=== PATIENT | female | born 1955 | race Caucasian/White ===

== ENCOUNTER 2016-08-26 15:35 | Emergency (ER) | payer MEDICARE, MEDICAID ==
[~2016-08-26 15:35] MED LIST: ABILIFY20 M1; AMITRIPTYLINE H25 M1; NORCO 5-325 TA1 EACH PO; ULTRAM50 M1; XANAX0.5 M1; [UNRECOGNIZED DRUG - REMARK]
[2016-08-26] MEDS ORDERED: BELSOMRA20 MG PO (16:13)
[2016-08-26] MEDS ORDERED: SUMATRIPTAN SU100 M1 PO (16:13)
[2016-08-26] MEDS ORDERED: AMBIEN10 M1 PO (16:13)
[2016-08-26] MEDS ORDERED: XANAX1 M1 PO (16:14)
[2016-08-26] MEDS ORDERED: IBUPROFEN800 M1 PO (16:14)
[2016-08-26] MEDS ORDERED: REMERON15 M1 PO (16:14)
[2016-08-26] MEDS ORDERED: ULTRAM50 M1 PO (16:14)
[2016-08-26] MEDS ORDERED: ANORO ELLIPTA1 EAC1 INH (16:15)
[2016-08-26] MEDS ORDERED: TRAZODONE HCL100 M1 PO (16:15)
[2016-08-26] MEDS ORDERED: BISCOLAX10 MG PR (16:15)
[2016-08-26] MEDS ORDERED: QUETIAPINE FUMA50 M1 PO (16:16)
[2016-08-26] MEDS ORDERED: CITALOPRAM HBR40 M1 PO (16:17)
[2016-08-26] MEDS ORDERED: CYCLOBENZAPRINE10 M1 PO (16:17)
[2016-08-26] MEDS ORDERED: OMEPRAZOLE20 M3 PO (16:18)
[2016-08-26] MEDS ORDERED: PERCOCET 5-3251 EACH PO (16:19)
[2016-08-26] MEDS ORDERED: CO Q-1030 M1 PO (17:05)
[2016-08-26] MEDS ORDERED: DECONGEST PO (17:05)
[2016-08-26] MEDS ORDERED: VITAMIN E400 UNI4 PO (17:05)
[2016-08-26] MEDS ORDERED: VITAMIN D31000 UNI3 PO (17:06)
[2016-08-26] MEDS ORDERED: VITAMIN B-12250 MC2 PO (17:06)
[2016-08-26 17:07] LABS: BASO % 0.4 % (0-2); EOS % 2.1 % (0-7); EOSINOPHIL ABSOLUTE COUNT 0.2 tho/cmm (0.0-0.7); HCT-HEMATOCRIT 40.4 % (34.0-49.0); HGB-HEMOGLOBIN 14.1 gm/dl (12.0-15.5); IMMATURE GRANULOCYTES ABSOLUTE 0.01 tho/cmm (0-0.03); IMMATURE GRANULOCYTES PERCENT 0.1 % (0-0.3); LYMPH % 44.7 % (20-45); LYMPH ABSOLUTE COUNT 3.2 tho/cmm (0.8-4.5); MCH (MEAN CORPUSCULAR HGB) 30.3 pg (28.0-32.0); MCHC MEAN CORPUSCULAR HGB CONC 34.9 % (32.0-36.0); MCV (MEAN CELL VOLUME) 86.9 fl (82.0-96.0); MEAN PLATELET VOLUME 9.7 cmc (9.4-12.4); MONO % 7.9 % (0-12); MONOCYTE ABSOLUTE COUNT 0.6 tho/cmm (0.0-1.2); NEUTROPHIL ABSOLUTE COUNT 3.2 tho/cmm (1.6-8.0); NEUTROPHIL-AUTOMATED 3.2 tho/cmm (1.6-8.0); NEUTROPHILS % 44.8 % (40-80); PLATELET COUNT 265 tho/cmm (150-450); RED BLOOD COUNT 4.65 mil/cmm (4.00-5.20); RED CELL DISTRIBUTION WIDTH 12.8 % (12.4-16.4); WHITE BLOOD COUNT 7.1 tho/cmm (4.0-10.0)
[2016-08-26 17:25] LABS: ALB/GLOB RATIO 0.9 (0.8-2.0); ALBUMIN 3.7 g/dl (3.5-5.0); ALKALINE PHOSPHATASE 91 U/L (33-138); ALT/SGPT 29 U/L (12-78); ANION GAP 10 mmol/L (0-20); AST/SGOT 21 U/L (10-40); BILIRUBIN,TOTAL 0.3 mg/dl (0-1.5); BLOOD UREA NITROGEN 11 mg/dl (6-24); CALCIUM 9.6 mg/dl (8.5-10.5); CARBON DIOXIDE-VENOUS 27 mmol/L (22-32); CHLORIDE 109 mmol/l (96-110); CREATININE 0.59 mg/dl (0.50-1.10); GLUCOSE 84 mg/dL (70-110); LIPASE 106 U/L (73-393); POTASSIUM 4.2 mmol/L (3.7-5.1); SODIUM 142 mmol/L (135-145); eGFR VALUE FOR BLACK >90 mL/Min
[2016-08-26 18:08] LABS: URINE BILIRUBIN NEGATIVE (NEG); URINE BLOOD MODERATE (NEG); URINE GLUCOSE (UA) NEGATIVE (NEG); URINE KETONE NEGATIVE (NEG); URINE LEUKOCYTE ESTERASE NEGATIVE (NEG); URINE NITRITE NEGATIVE (NEG); URINE PROTEIN NEGATIVE (NEG); URINE SPECIFIC GRAVITY 1.005 (1.003-1.030)
[2016-08-26 18:10] LABS: URINE APPEARANCE HAZY; URINE COLOR PALE YELLOW
[2016-08-26 18:21] LABS: URINE AMORPHOUS 1+; URINE EPITHELIAL CELLS 0 /[HPF] (0-10); URINE WBC 0 /[HPF] (0-5)
[2016-08-26] MEDS ORDERED: PRILOSEC OTC20 M1 PO (18:32)
[2016-08-26] MEDS ORDERED: CARAFATE1 G2 PO (18:37)
== END 2016-08-26 18:59 ==
LOC: EDMED 15:35
PROVIDERS: Physician Assistant
DX: R10.13 Epigastric pain (principal); R10.11 Right upper quadrant pain; F32.9 Major depressive disorder, single episode, unspecified; K21.9 Gastro-esophageal reflux disease without esophagitis; M79.7 Fibromyalgia; F17.210 Nicotine dependence, cigarettes, uncomplicated; Z90.710 Acquired absence of both cervix and uterus
CPT/HCPCS: J2405; J7030